=== PATIENT | female | born 2000 | race Caucasian/White ===

== ENCOUNTER 2020-06-28 18:06 | Emergency (ER) | payer SELFPAY ==
[2020-06-28 18:59] LABS: ABSOLUTE EOSINOPHILS # (AUTO) 0.1 10^3/uL (0.0-0.6); MONOCYTES % (AUTO) 5.1 % (3-13); TOTAL CELLS COUNTED % (AUTO) 100 %
[2020-06-28 19:05] LABS: ABSOLUTE LYMPHOCYTES (AUTO) 1.7 10^3/uL (0.5-4.7); ABSOLUTE MONOCYTES (AUTO) 0.4 10^3/uL (0.1-1.4); ABSOLUTE NEUT (AUTO) 5.1 10^3/uL (1.7-8.2); BASOPHILS % (AUTO) 0.5 % (0-2); EOSINOPHILS % (AUTO) 1.3 % (0-6); HEMATOCRIT 43.6 % (36.0-47.0); HEMOGLOBIN 14.8 g/dL (12.0-15.5); LYMPHOCYTES % (AUTO) 23.2 % (13-45); MEAN CORPUSCULAR HEMOGLOBIN 30.7 pg (27.0-33.4); MEAN CORPUSCULAR VOLUME 90 fl (80-97); PLATELET COUNT 252 10^3/uL (150-450); RED BLOOD COUNT 4.82 10^6/uL (3.72-5.28); RED CELL DISTRIBUTION WIDTH 12.8 % (11.5-14.0); SEGMENTED NEUTROPHILS % (AUTO) 69.9 % (42-78); WHITE BLOOD COUNT 7.3 10^3/uL (4.0-10.5)
[2020-06-28 19:22] LABS: ALBUMIN 4.8 g/dL (3.5-5.0); ALKALINE PHOSPHATASE 64 U/L (38-126); ANION GAP 8 (5-19); ASPARTATE AMINO TRANSFERASE 30 U/L (14-36); BILIRUBIN,TOTAL 0.7 mg/dL (0.2-1.3); BLOOD UREA NITROGEN 10 mg/dL (7-20); CALCIUM 9.7 mg/dL (8.4-10.2); CARBON DIOXIDE 22 mmol/L (22-30); CHLORIDE 106 mmol/L (98-107); GLUCOSE 101 mg/dL (75-110); POTASSIUM 4.1 mmol/L (3.6-5.0); TOTAL PROTEIN 7.9 g/dL (6.3-8.2)
[2020-06-28 19:24] LABS: ALCOHOL < 10 mg/dL (NONE DETECTED)
[2020-06-28 19:31] LABS: APPEARANCE,URINE CLEAR; BILIRUBIN,URINE NEGATIVE (NEGATIVE); COLOR,URINE STRAW; GLUCOSE, URINE NEGATIVE (NEGATIVE); KETONES,URINE NEGATIVE (NEGATIVE); LEUKOCYTE ESTERASE,URINE SMALL (NEGATIVE); NITRITE,URINE NEGATIVE (NEGATIVE); PROTEIN,URINE NEGATIVE (NEGATIVE); URINE SPECIFIC GRAVITY 1.004; UROBILINOGEN,URINE NEGATIVE mg/dL (<2.0)
--- NOTE | 2020-06-28 19:44 | ER Document Report ---
ED Seizure - General Chief Complaint: amandeep Stated Complaint: SEIZURE Time Seen by Provider: 06/28/20 18:15 Mode of Arrival: Medic Information source: Emergency Med Personnel Notes: Patient 20-year-old female presents to the emergency department with a history of seizure activity which occurred this afternoon. Apparently she was in the bed with her boyfriend when she began having a shaking episode. Apparently became confused afterwards and had some biting of the tongue. She denies a p rior history of seizures. There was no incontinence of urine or stool. She is on levothyroxine for hypothyroidism, does not take any other medications, denies any use of illicit drugs, denies alcohol use. Past Medical History - Social History Smoking Status: Never Smoker Chew tobacco use (# tins/day): No Frequency of alcohol use: Rare Drug Abuse: None Family History: Reviewed & Not Pertinent Patient has homicidal ideation: No Review of Systems - Review of Systems Notes: Constitutional: Negative for fever. HENT: See HPI Eyes: Negative for visual changes. Cardiovascular: Negative for chest pain. Respiratory: Negative for shortness of breath. Gastrointestinal: Negative for abdominal pain, vomiting or diarrhea. Genitourinary: Negative for dysuria. Musculoskeletal: Negative for back pain. Skin: Negative for rash. Neurological: Seizure episode, negative for headaches, weakness or numbness. 10 point ROS negative except as marked above and in HPI. Physical Exam - Vital signs Vitals: Resp Pulse Ox 26 H 100 06/28/20 18:19 06/28/20 18:19 - Notes Notes: PHYSICAL EXAMINATION: Physical Exam: General: Well-nourished well-developed 20-year-old female in no acute distress HEENT: NC/AT, pupils equal round and reactive to light, MM moist,nares clear, oropharynx clear, airway patent, tongue with superficial abrasions area secondary to biting on tongue. Neck: supple, no adenopathy, no masses. Good range of motion Lungs: clear, no wheezing, no rales no rhonchi CVS: Regular rate and rhythm no murmur gallop or rub Abdomen: Soft, active, nontender, no masses, no hepatosplenomegaly Ext: No edema, clubbing or cyanosis. Neuro: Alert and responsive, moving all 4 extremities on command, cranial nerves intact, no focal findings Skin: Intact no open lesions, no rash PSYCH: Normal mood, normal affect. Course - Re-evaluation Re-evalutation: 06/28/20 19:47 Patient has no known seizure history, episode today sounds concerning given biting of the tongue and also post ictal status with confusion. No other injuries are noted patient is alert and functional at this time. CT scan was done along with labs. - Vital Signs Vital signs: Temp Pulse Resp BP Pulse Ox 99.4 F 102 H 19 118/79 98 06/28/20 19:01 06/28/20 21:02 06/28/20 21:02 06/28/20 21:02 06/28/20 21:02 - Laboratory Result Diagrams: 06/28/20 18:44 06/28/20 18:44 Laboratory results interpreted by me: 06/28/20 06/28/20 18:44 19:22 Sodium 136.2 L Urine Blood SMALL H Ur Leukocyte Esterase SMALL H I have reviewed laboratory data and used this information for the treatment decisions regarding the patient. - Diagnostic Test Radiology reviewed: Image reviewed, Reports reviewed Radiology results interpreted by me: 06/28/20 20:22 CT scan of the head noncontrast: Bilateral cochlear implants noted, no acute intra-cranial pathology. Discharge - Discharge Clinical Impression: New onset seizure Condition: Good Disposition: HOME, SELF-CARE Instructions: New Seizure ([facility]) Additional Instructions: You were seen in the emergency department tonight and diagnosed with new onset seizure activity. You are being referred to neurology for closer evaluation and determination of a possible seizure focus which will require long-term medical treatment. If you have further episodes of seizure you may return to the emergency department at that time a commitment will be made to begin the medic ation if needed. Please follow-up with the neurologist, contact the office tomorrow regarding for appointment. You are being referred to a neurologist, Dr. Jason Hickey,, call [phone] to schedule an appointment. Please inform the imaging scheduler that you were seen in the emergency department at [facility] 06/28/2020 with new onset seizure episode and labs and CT scan were negative. HOME CARE INSTRUCTIONS & INFORMATION: Thank you for choosing us for your medical needs. We hope you're satisfied with the care you received. After you leave, you must properly care for your problem and, at the same time, observe its progress. Any condition can change. Some illnesses can change rapidly over hours or days. If your condition worsens, return to the Emergency Department or see your physician promptly. ABOUT YOUR X-RAYS AND EKG'S: If you had an EKG or X-rays taken, they have been read by the Emergency Physician. The X-rays and EKG's will also be read by a Radiologist or Needle Valve Operator within 24 hours. If discrepancies are noted, you will be notified by telephone. Please be certain the ED has a correct telephone number & address where you can be reached. Also, realize that some fractures or abnormalities do not show up on initial X-rays. If your symptoms continue, see your physician. ABOUT YOUR LABORATORY TEST: If you had laboratory tests, the results have been reviewed by the Emergency Physician. Some test results (for example cultures) may not be available for several days. You will be contacted if any test result shows you need additional treatment. Please be certain the ED has a correct telephone number and address where you can be reached. ABOUT YOUR MEDICATIONS: You will receive instructions on how to take your medic ine on the prescription label you receive. Additional information may be provided by the Pharmacy. If you have questions afterwards, call the ED for clarification or further instructions. Some prescribed medications may cause drowsiness. Do not perform tasks such as driving a car or operating machinery without consulting your Pharmacist. If you feel you need a refill of pain medication, your condition will need re-evaluation. Please do not call for a refill of any medication. ABOUT YOUR SIGNATURE: Signature of this document acknowledges to followin. Understanding that you received emergency treatment and that you may be released before al medical problems are known or treated. Please be certain the ED has a correct phone number & address where you can be reached. 2. Acknowledgement that you will arrange for follow-up care as recommended. 3. Authorization for the Emergency Physician to provide information to your follow-up Physician in order to maximize your care. AT ANY TIME, IF YOUR SYMPTOMS CHANGE SIGNIFICANTLY OR WORSEN OR YOU DEVELOP NEW SYMPTOMS, RETURN TO THE EMERGENCY DEPARTMENT IMMEDIATELY FOR RE-EVALUATION. OUR GOAL IS TO PROVIDE EXCELLENT MEDICAL CARE! WE HOPE THAT WE HAVE MET YOUR EXPECTATIONS DURING YOUR EMERGENCY DEPARTMENT VISIT AND THAT YOU FEEL YOU HAVE RECEIVED EXCELLENT CARE!
[2020-06-28 19:49] LABS: URINE AMPHETAMINES SCREEN NEGATIVE; URINE BARBITURATES SCREEN NEGATIVE; URINE BENZODIAZEPINES SCREEN NEGATIVE; URINE COCAINE SCREEN NEGATIVE; URINE MARIJUANA (THC) SCREEN NEGATIVE; URINE METHADONE SCREEN NEGATIVE; URINE PHENCYCLIDINE SCREEN NEGATIVE
--- NOTE | 2020-06-28 20:01 | RADIOLOGY REPORT (SQ) ---
EXAM DESCRIPTION: CT HEAD WITHOUT IMAGES COMPLETED DATE/TIME: 06/28/2020 7:44 pm REASON FOR STUDY: new onset seizure COMPARISON: None. TECHNIQUE: Axial images acquired through the brain without intravenous contrast. Images reviewed wi th bone, brain and subdural windows. Additional sagittal and coronal reconstructions were generated. Images stored on PACS. All CT scanners at this facility use dose modulation, iterative reconstruction, and/or weight based d osing when appropriate to reduce radiation dose to as low as reasonably achievable (ALARA). [facility]: Dose Right [facility]: CareDose [facility]: Dose Right [facility]: Teradose 4D [facility]: Smart FileThis RADIATION DOSE: CT Rad equipment meets quality standard of care and radiation dose reduction techniq ues were employed. CTDIvol: 53.2 mGy. DLP: 1070 mGy-cm. mGy. LIMITATIONS: Beam hardening artifact from metal in the occipital area on each side. FINDINGS: VENTRICLES: Normal size and contour. CEREBRUM: No masses. No hemorrhage. No midline shift. No evidence for acute infarction. Normal gra y/white matter differentiation. No areas of low density in the white matter. CEREBELLUM: No masses. No hemorrhage. No alteration of density. No evidence for acute infarction. EXTRAAXIAL SPACES: No fluid collections. No masses. ORBITS AND GLOBE: No intra- or extraconal masses. Normal contour of globe without masses. CALVARIUM: No fracture. PARANASAL SINUSES: No fluid or mucosal thickening. SOFT TISSUES: No mass or hematoma. OTHER: No other significant finding. IMPRESSION: Slightly limited study. No acute intracranial imaging findings were seen. EVIDENCE OF ACUTE STROKE: NO. COMMENT: Quality ID # [id number]: Final reports with documentation of one or more dose reduction techniques (e.g., Automated exposure control, adjustment of the mA and/or kV according to patient size, use of iterative reconstruction technique) TECHNICAL DOCUMENTATION: JOB ID: [id number] 2010 [employer]- All Rights Reserved Reading location - IP/workstation name: [email or web address]
[2020-06-28 21:02] VITALS: BP 118/79
--- NOTE | 2020-06-29 09:15 | EKG REPORT ---
SEVERITY:- BORDERLINE ECG - SINUS TACHYCARDIA : Confirmed by: Justo Figueroa MD 29-Jun-2020 09:14:47
== END 2020-06-28 21:01 | disposition home or self-care (01) ==
LOC: ER 18:06
DX: R56.9 Unspecified convulsions (principal)
CPT/HCPCS: 36415; 70450; 80053; 80307; 81001; 83735; 84703; 85025; 93005; 93010; 99285

== ENCOUNTER 2020-07-15 03:54 | Emergency (ER) | payer SELFPAY ==
[2020-07-15 04:22] VITALS: BP 107/75
[2020-07-15 05:11] LABS: ABSOLUTE BASOPHILS # (AUTO) 0.1 10^3/uL (0.0-0.2); ABSOLUTE EOSINOPHILS # (AUTO) 0.1 10^3/uL (0.0-0.6); ABSOLUTE MONOCYTES (AUTO) 0.5 10^3/uL (0.1-1.4); ABSOLUTE NEUT (AUTO) 6.9 10^3/uL (1.7-8.2); BASOPHILS % (AUTO) 0.6 % (0-2); EOSINOPHILS % (AUTO) 1.3 % (0-6); HEMATOCRIT 44.2 % (36.0-47.0); LYMPHOCYTES % (AUTO) 21.2 % (13-45); MEAN CORPUSCULAR HEMOGLOBIN 30.4 pg (27.0-33.4); MEAN CORPUSCULAR HGB CONC 33.9 g/dL (32.0-36.0); MEAN CORPUSCULAR VOLUME 90 fl (80-97); MONOCYTES % (AUTO) 5.1 % (3-13); PLATELET COUNT 271 10^3/uL (150-450); RED BLOOD COUNT 4.92 10^6/uL (3.72-5.28); RED CELL DISTRIBUTION WIDTH 12.8 % (11.5-14.0); SEGMENTED NEUTROPHILS % (AUTO) 71.8 % (42-78); TOTAL CELLS COUNTED % (AUTO) 100 %; WHITE BLOOD COUNT 9.6 10^3/uL (4.0-10.5)
[2020-07-15 05:19] LABS: APPEARANCE,URINE SLIGHTLY-CLOUDY; BILIRUBIN,URINE NEGATIVE (NEGATIVE); COLOR,URINE YELLOW; GLUCOSE, URINE NEGATIVE (NEGATIVE); KETONES,URINE NEGATIVE (NEGATIVE); LEUKOCYTE ESTERASE,URINE SMALL (NEGATIVE); NITRITE,URINE NEGATIVE (NEGATIVE); PROTEIN,URINE NEGATIVE (NEGATIVE); URINE SPECIFIC GRAVITY 1.017; UROBILINOGEN,URINE NEGATIVE mg/dL (<2.0)
[2020-07-15 05:27] LABS: URINE AMPHETAMINES SCREEN NEGATIVE; URINE BARBITURATES SCREEN NEGATIVE; URINE BENZODIAZEPINES SCREEN NEGATIVE; URINE COCAINE SCREEN NEGATIVE; URINE MARIJUANA (THC) SCREEN NEGATIVE; URINE METHADONE SCREEN NEGATIVE; URINE PHENCYCLIDINE SCREEN NEGATIVE
[2020-07-15 05:28] LABS: ALBUMIN 4.8 g/dL (3.5-5.0); ALKALINE PHOSPHATASE 65 U/L (38-126); ANION GAP 11 (5-19); ASPARTATE AMINO TRANSFERASE 25 U/L (14-36); BILIRUBIN,TOTAL 0.5 mg/dL (0.2-1.3); BLOOD UREA NITROGEN 11 mg/dL (7-20); CALCIUM 9.8 mg/dL (8.4-10.2); CARBON DIOXIDE 24 mmol/L (22-30); CHLORIDE 105 mmol/L (98-107); GLUCOSE 94 mg/dL (75-110); TOTAL PROTEIN 7.7 g/dL (6.3-8.2)
[2020-07-15 05:31] LABS: ALCOHOL < 10 mg/dL (NONE DETECTED)
== END 2020-07-15 05:30 | disposition left against medical advice (07) ==
LOC: ER 03:54
DX: Z53.21 Procedure and treatment not carried out due to patient leaving prior to being seen by health care provider (principal); R56.9 Unspecified convulsions
CPT/HCPCS: 36415; 80053; 80307; 81001; 82962; 83735; 84703; 85025

== ENCOUNTER 2020-08-21 11:23 | Emergency (ER) | payer OTHER ==
[2020-08-21 11:37] VITALS: BP 115/70
[2020-08-21 12:38] LABS: ABSOLUTE EOSINOPHILS # (AUTO) 0.1 10^3/uL (0.0-0.6); ABSOLUTE LYMPHOCYTES (AUTO) 1.8 10^3/uL (0.5-4.7); ABSOLUTE MONOCYTES (AUTO) 0.4 10^3/uL (0.1-1.4); ABSOLUTE NEUT (AUTO) 4.5 10^3/uL (1.7-8.2); BASOPHILS % (AUTO) 0.3 % (0-2); EOSINOPHILS % (AUTO) 1.4 % (0-6); HEMATOCRIT 41.6 % (36.0-47.0); HEMOGLOBIN 14.4 g/dL (12.0-15.5); LYMPHOCYTES % (AUTO) 26.5 % (13-45); MEAN CORPUSCULAR HEMOGLOBIN 31.2 pg (27.0-33.4); MEAN CORPUSCULAR HGB CONC 34.7 g/dL (32.0-36.0); MEAN CORPUSCULAR VOLUME 90 fl (80-97); MONOCYTES % (AUTO) 6.2 % (3-13); PLATELET COUNT 215 10^3/uL (150-450); RED BLOOD COUNT 4.62 10^6/uL (3.72-5.28); RED CELL DISTRIBUTION WIDTH 13.3 % (11.5-14.0); SEGMENTED NEUTROPHILS % (AUTO) 65.6 % (42-78); TOTAL CELLS COUNTED % (AUTO) 100 %; WHITE BLOOD COUNT 6.9 10^3/uL (4.0-10.5)
--- NOTE | 2020-08-21 12:42 | ER Document Report ---
ED General - General Chief Complaint: Chest Tightness Stated Complaint: CHEST TIGHTNESS Time Seen by Provider: 08/21/20 11:35 - HPI Notes: Chief complaint: Chest pain History of present illness: 20-year-old female with no primary care physician brought here by her mother today because concern about intermittent sharp left anterior chest pain for 1 week. Episodes usually last less than 5 minutes. Not associated with dyspnea, cough, hemoptysis, fever, chills, diaphoresis or any radiation of pain. She is not on BCPs. She has no history of thromboembolic disease. No history of any cardiac problems. Not hypertensive by history. No history of diabetes or hyperlipidemia. Non-smoker. No drug abuse. PERC SCORE negative as follows: H noted hormone administration A Age less than 50 D NO DVT/PE previously C no coughing up blood L no leg swelling unilaterally O O2 sat greater than 95% T no tachycardia S no surgery/Trauma recently Patient has a history of congenital hearing impairment. She also has a seizure disorder and is on Keppra. 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 - Related Data Allergies/Adverse Reactions: No Known Allergies Allergy (Unverified 07/15/20 04:12) Home Medications: Levothyroxine, Keppra, Boric Acid suppositories Past Medical History - General Information source: Patient, Parent, [facility] Records - Social History Smoking Status: Never Smoker Frequency of alcohol use: None Drug Abuse: None Family History: Reviewed & Not Pertinent Neurological Medical History: Reports: Hx Seizures Past Surgical History: Reports: Hx Tonsillectomy - T&A Review of Systems - Review of Systems Notes: Constitutional: Negative for fever. HENT: Negative for sore throat. Eyes: Negative for visual changes. Cardiovascular: As per HPI. Respiratory: As per HPI. Gastrointestinal: Negative for abdominal pain, vomiting or diarrhea. Genitourinary: Negative for dysuria. Musculoskeletal: No leg swelling or pain. Skin: Negative for rash. Neurological: Negative for headaches, weakness or numbness. 10 point ROS negative except as marked above and in HPI. Physical Exam - Vital signs Vitals: Temp Pulse Resp BP Pulse Ox 97.8 F 84 16 115/70 100 08/21/20 11:37 08/21/20 11:37 08/21/20 11:37 08/21/20 11:37 08/21/20 11:37 - Notes Notes: GENERAL: Slender female approximately stated age appearing in no acute distress. SKIN: Good turgor no rashes. HEAD: Normocephalic atraumatic. EYES: PERRLA. EOMI. Conjunctivae and sclerae clear. EARS: CANALS AND TMS CLEAR. NOSE: CLEAR. MOUTH: Moist mucosa. Good dentition. No stridor or edema. No drooling. NECK: Supple. No masses or thyromegaly. No adenopathy. Carotids 2+ without bruits. No JVD. BACK: Symmetrical without tenderness. CHEST: Mild reproducible left anterior chest wall tenderness. Respirations unlabored. Breath sounds clear and symmetrical. HEART: Regular rhythm. No murmur gallop or rub. ABDOMEN: Soft nontender without masses, organomegaly or rebound. Bowel sounds normally active. No bruits. GENITALIA: Deferred. EXTREMITIES: No edema. No calf tenderness. Cap refill less than 1.5 seconds. Dorsalis pedis and posterior tibial pulses 3+ and symmetrical. NEUROLOGICAL: GCS 15. Alert and oriented x3. Normal gait. Fluent speech. Cranial nerves II through XII intact. Sensorimotor and cerebellar normal. Normal tone. PSYCHIATRIC: Appropriate affect. Course - Re-evaluation Re-evalutation: 08/21/20 13:54 Chest x-ray is normal. Her CBC, comprehensive metabolic profile, chest x-ray were all normal. Her TSH was markable for a minuscule elevation which I think is within the range of measurement error. I explained to patient and her mother that I would not recommend changing her thyroid dosage right now. I think it is likely that her current chest discomfort is a musculoskeletal origin. I would feel comfortable with outpatient primary care follow-up and will make an appropriate referral. In the meantime he may use ibuprofen or acetaminophen [id number] as needed. Findings, clinical impression and plan of treatment have been discussed with patient/family. Understanding of current findings and recommendations has been acknowledged by them and there is agreement regarding disposition and follow-up. - Vital Signs Vital signs: Temp Pulse Resp BP Pulse Ox 97.8 F 84 16 115/70 100 08/21/20 11:37 08/21/20 11:37 08/21/20 11:37 08/21/20 11:37 08/21/20 11:37 - Laboratory Result Diagrams: 08/21/20 12:20 08/21/20 12:20 Laboratory results interpreted by me: 08/21/20 08/21/20 08/21/20 12:20 12:20 12:29 Glucose 69 L TSH 4.73 H Leukocyte Esterase Rfl SMALL H - EKG Interpretation by Me Additional EKG results interpreted by me: 08/21/20 12:40 Twelve-lead EKG reviewed by me contemporaneously: 1130 hrs. Indication for study: Chest pain Rhythm: Normal sinus Rate: 85 Intervals: Normal QRS axis: [address]/T wave changes: None Comparison with prior tracing: None Interpretation: Normal tracing Discharge - Discharge Clinical Impression: Chest pain Condition: Stable Disposition: HOME, SELF-CARE Additional Instructions: [id number] Tylenol or ibuprofen as needed for discomfort. Return here as needed for new or worsening symptoms: Pain that is worsening or unimproved Uncontrolled vomiting High fever or shaking chills Overall worsening Follow-up with referral primary care physician. Referrals: [facility] [Provider Group] - Follow up as needed
[2020-08-21 12:45] LABS: APPEARANCE,URINE SLIGHTLY-CLOUDY; BILIRUBIN,URINE NEGATIVE (NEGATIVE); COLOR,URINE STRAW; GLUCOSE, URINE NEGATIVE (NEGATIVE); KETONES,URINE NEGATIVE (NEGATIVE); PROTEIN,URINE NEGATIVE (NEGATIVE); URINE SPECIFIC GRAVITY 1.005; UROBILINOGEN,URINE NEGATIVE mg/dL (<2.0)
[2020-08-21 12:55] LABS: ALBUMIN 4.7 g/dL (3.5-5.0); ALKALINE PHOSPHATASE 55 U/L (38-126); ANION GAP 11 (5-19); ASPARTATE AMINO TRANSFERASE 25 U/L (14-36); BILIRUBIN,DIRECT 0.2 mg/dL (0.0-0.4); BILIRUBIN,TOTAL 0.9 mg/dL (0.2-1.3); BLOOD UREA NITROGEN 10 mg/dL (7-20); CALCIUM 9.5 mg/dL (8.4-10.2); CARBON DIOXIDE 23 mmol/L (22-30); CHLORIDE 107 mmol/L (98-107); TOTAL PROTEIN 7.6 g/dL (6.3-8.2)
[2020-08-21 13:02] LABS: URINE AMPHETAMINES SCREEN NEGATIVE; URINE BARBITURATES SCREEN NEGATIVE; URINE BENZODIAZEPINES SCREEN NEGATIVE; URINE COCAINE SCREEN NEGATIVE; URINE MARIJUANA (THC) SCREEN NEGATIVE; URINE METHADONE SCREEN NEGATIVE; URINE PHENCYCLIDINE SCREEN NEGATIVE
[2020-08-21 13:19] LABS: ALCOHOL < 10 mg/dL (NONE DETECTED); GLUCOSE 69 mg/dL (75-110)
--- NOTE | 2020-08-21 13:48 | RADIOLOGY REPORT (SQ) ---
EXAM DESCRIPTION: CHEST 2 VIEWS IMAGES COMPLETED DATE/TIME: 08/21/2020 12:11 pm REASON FOR STUDY: cp COMPARISON: None. TECHNIQUE: Frontal and lateral radiographic views of the chest acquired. NUMBER OF VIEWS: Two view. LIMITATIONS: None. FINDINGS: LUNGS AND PLEURA: No pneumothorax. No consolidation or pleural effusion. MEDIASTINUM AND HILAR STRUCTURES: No contour abnormalities. HEART AND VASCULAR STRUCTURES: Heart normal size. BONES: No acute findings. HARDWARE: None in the chest. OTHER: No other significant finding. IMPRESSION: NO ACUTE FINDINGS. TECHNICAL DOCUMENTATION: JOB ID: [id number] [place]-72 2010 [employer]- All Rights Reserved Reading location - IP/workstation name: [email or web address]
--- NOTE | 2020-08-21 21:48 | EKG REPORT ---
SEVERITY:- NORMAL ECG - SINUS RHYTHM : Confirmed by: Donna Roca MD 21-Aug-2020 21:47:47
== END 2020-08-21 14:15 | disposition home or self-care (01) ==
LOC: ER 11:23
DX: R07.9 Chest pain, unspecified (principal); Z79.899 Other long term (current) drug therapy
CPT/HCPCS: 36415; 71046; 80053; 80307; 81001; 81025; 84443; 85025; 93005; 93010; 99285

== ENCOUNTER 2020-11-19 12:25 | Emergency (ER) | payer OTHER ==
[2020-11-19 13:36] LABS: ABSOLUTE LYMPHOCYTES (AUTO) 0.9 10^3/uL (0.5-4.7); ABSOLUTE MONOCYTES (AUTO) 0.2 10^3/uL (0.1-1.4); BASOPHILS % (AUTO) 0.3 % (0-2); EOSINOPHILS % (AUTO) 0.1 % (0-6); HEMATOCRIT 43.7 % (36.0-47.0); HEMOGLOBIN 14.9 g/dL (12.0-15.5); LYMPHOCYTES % (AUTO) 9.5 % (13-45); MEAN CORPUSCULAR HEMOGLOBIN 30.1 pg (27.0-33.4); MEAN CORPUSCULAR HGB CONC 34.1 g/dL (32.0-36.0); MEAN CORPUSCULAR VOLUME 88 fl (80-97); MONOCYTES % (AUTO) 2.5 % (3-13); PLATELET COUNT 260 10^3/uL (150-450); RED BLOOD COUNT 4.94 10^6/uL (3.72-5.28); RED CELL DISTRIBUTION WIDTH 12.7 % (11.5-14.0); SEGMENTED NEUTROPHILS % (AUTO) 87.6 % (42-78); TOTAL CELLS COUNTED % (AUTO) 100 %; WHITE BLOOD COUNT 9.2 10^3/uL (4.0-10.5)
[2020-11-19] MEDS ORDERED: LEVETIRACETAM 1000 MG/NACL-ISO 1,000 MG/100 ML RTUPB IV ONE (13:44)
[2020-11-19] MEDS ORDERED: NORMAL SALINE 1000 ML 1,000 ML IV ONE (13:44)
--- NOTE | 2020-11-19 13:51 | ER Document Report ---
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 Patient is being followed by neurologist in [facility], Dr. Zuniga, who has been treating her with Keppra 500 mg twice daily. Patient had a normal noncontrast head CT in June of this year. She was not able to have an MRI scan because she has bilateral cochlear implants incompatible with MRI scanning. She has had an office-based EEG that was read as normal and is supposed to be scheduled for an upcoming 24-hour EEG. Mother notes that patient has had some disturbance of her sleep pattern within the last several days and other than that nothing out of the ordinary with her routine. She is fully compliant with her medication. No alcohol consumption. No new trauma. No fever, chills, dysuria, nausea, vomiting or diarrhea. Patient is a non-smoker. No history of drug use. Mother notes that pattern of seizures has changed slightly. 2 seizures in the last 24 hours is unusual for her. Also patient had reported seeing some "wavy lines" in visual schumacher prior to both of these seizures. She had complained of extreme fatigue within the 12-hour. Pr eceding the first of these 2 seizures. Both were described as generalized tonic-clonic brief in duration perhaps under 2 minutes. Patient complained of fatigue and dull headache afterwards and with her earlier seizures mother noted that her period of postictal confusion was very brief perhaps under 30 minutes. When she had a seizure earlier today she was postictal for over an hour. Last menses normal 2 weeks ago. - Related Data Allergies/Adverse Reactions: No Known Allergies Allergy (Unverified 07/15/20 04:12) Home Medications: keppra, synthroid Past Medical History - General Information source: Patient, Parent, REPLACED BY [facility] Records - Social History Smoking Status: Never Smoker Frequency of alcohol use: None Drug Abuse: None Lives with: Family Family History: Reviewed & Not Pertinent Patient has homicidal ideation: No - Past Medical History Cardiac Medical History: Reports: None Pulmonary Medical History: Reports: None Neurological Medical History: Reports: Hx Seizures Endocrine Medical History: Denies: Hx Diabetes Mellitus Type 1, Hx Diabetes Mellitus Type 2 Malignancy Medical History: Reports: None GI Medical History: Reports: None Musculoskeletal Medical History: Reports None Psychiatric Medical History: Reports: None Past Surgical History: Reports: Hx Tonsillectomy - T&A, Other - Bilateral cochlear implants Review of Systems - Review of Systems Notes: Constitutional: Negative for fever. HENT: Negative for sore throat. Eyes: Negative for visual changes. Cardiovascular: Negative for chest pain. Respiratory: Negative for shortness of breath. Gastrointestinal: Negative for abdominal pain, vomiting or diarrhea. Genitourinary: Negative for dysuria. Musculoskeletal: Negative for back pain. Skin: Negative for rash. Neurological: As per HPI. 10 point ROS negative except as marked above and in HPI. Physical Exam - Vital signs Vitals: Temp Pulse Resp BP Pulse Ox 98.4 F 123 H 16 104/86 H 98 11/19/20 12:30 11/19/20 12:30 11/19/20 12:30 11/19/20 12:30 11/19/20 12:30 - Notes Notes: GENERAL: Slender female approximately stated age appearing in no acute distress. SKIN: Somewhat pale. Good turgor no rashes. HEAD: Normocephalic atraumatic. EYES: Eyes appear mildly sunken consistent with mild dehydration. PERRLA. EOMI. Conjunctivae and sclerae clear. EARS: CANALS AND TMS CLEAR. NOSE: CLEAR. MOUTH: Moist mucosa. Good dentition. No stridor or edema. No drooling. NECK: Supple. No masses or thyromegaly. No adenopathy. Carotids 2+ without bruits. No JVD. BACK: Symmetrical without tenderness. CHEST: Respirations unlabored. Breath sounds clear and symmetrical. HEART: Regular rhythm. No murmur gallop or rub. ABDOMEN: Soft nontender without masses, organomegaly or rebound. Bowel sounds normally active. No bruits. GENITALIA: Deferred. EXTREMITIES: No edema. No calf tenderness. Cap refill less than 1.5 seconds. Dorsalis pedis and posterior tibial pulses 3+ and symmetrical. NEUROLOGICAL: GCS 15. Alert and oriented x3. Normal gait. Fluent speech. Cranial nerves II through XII intact. Sensorimotor and cerebellar normal. 1+ ankle clonus bilaterally. PSYCHIATRIC: Flat affect. Course - Vital Signs Vital signs: Temp Pulse Resp BP Pulse Ox 98.4 F 123 H 24 H 113/81 100 11/19/20 12:30 11/19/20 12:30 11/19/20 12:56 11/19/20 12:56 11/19/20 12:56 - Laboratory Results Result Diagrams: 11/19/20 13:10 11/19/20 13:10 Laboratory Results Interpreted: 11/19/20 11/19/20 11/19/20 13:10 13:10 14:15 Lymph % (Auto) 9.5 L Jack % (Auto) 2.5 L Seg Neutrophils % 87.6 H Sodium 135.2 L Carbon Dioxide 21 L Glucose 119 H Urine Protein 30 H Urine Ketones 20 H Ur Leukocyte Esterase TRACE H Urine Ascorbic Acid 40 H Critical Laboratory Results Reviewed: Yes Attending or Supervising Physician who Reviewed Labs: LINA ORTEGA - Radiology Results Radiology Results Interpreted: 11/19/20 15:35 This is a young lady who has been worked up and managed by her neurologist with a generalized seizure disorder attributed to idiopathic epilepsy since June of this year. She has had breakthrough seizures over the last 24 hours and is experienced 2 episodes of seizure. She has some dull headache. She has not slept well for several days preceding this and sleep deprivation may have been the precipitating factor. As I talked with her mother further it seems that she has withdrawn from usual activities now and is spending all of her time at home and not getting any regular exercise due to her seizure disorder and also isolation related to Covid pandemic. Her evaluation here today shows that she may have a mild urinary tract infection. She does not have a fever or elevation of her peripheral white count. She has no new neurologic abnormality on today's exam and is appropriately oriented. She does look like she may be mildly dehydrated clinically and her labs are consistent with this as well. She has been getting IV normal saline here and we gave her some additional Keppra IV. Her neurologist had already advised her by phone earlier today to increase her dosage of Keppra from 500 mg twice daily to 1000 mg twice daily. I am going to treat her with some oral Keflex and talk with her mother about assuring adequate fluid intake and doing some daily walking to try to normalize her sleep pattern a bit. She can follow-up with her neurologist by telephone within the next 24 hours and may return here for any additional problems. Findings, clinical impression and plan of treatment have been discussed with patient/family. Understanding of current findings and recommendations has been acknowledged by them and there is agreement regarding disposition and follow-up. Critical Radiology Results Reviewed: No Critical Results Discharge - Discharge Clinical Impression: Seizure, Dehydration, Urinary tract infection Condition: Stable Disposition: HOME, SELF-CARE Instructions: Cephalexin ([facility]) Additional Instructions: Increase the dosage on her Keppra as recommended by your neurologist already. Take prescribed antibiotic for the next 3 days for urinary tract infection. Results of your urine culture remain pending at this time. Increase oral fluid intake as directed. Take a walk or engage in other regular exercise for at least 30 minutes each day to improve your sleep pattern. Follow-up with your neurologist by telephone within the next 24 hours. Return here as needed for new or worsening symptoms: Pain that is worsening or unimproved Uncontrolled vomiting High fever or shaking chills Overall worsening Prescriptions: Cephalexin Monohydrate [Keflex 500 mg Capsule] 500 mg PO Q6H 5 Days capsule
[2020-11-19 14:03] LABS: ALBUMIN 4.9 g/dL (3.5-5.0); ANION GAP 10 (5-19); ASPARTATE AMINO TRANSFERASE 24 U/L (14-36); BLOOD UREA NITROGEN 14 mg/dL (7-20); CALCIUM 9.6 mg/dL (8.4-10.2); CARBON DIOXIDE 21 mmol/L (22-30); CHLORIDE 104 mmol/L (98-107); GLUCOSE 119 mg/dL (75-110); POTASSIUM 4.4 mmol/L (3.6-5.0); TOTAL PROTEIN 8.1 g/dL (6.3-8.2)
[2020-11-19 14:04] LABS: ALKALINE PHOSPHATASE 75 U/L (38-126)
[2020-11-19 14:09] LABS: ALCOHOL < 10 mg/dL (NONE DETECTED)
[2020-11-19 15:02] LABS: AMORPHOUS SEDIMENT,URINE TRACE /HPF; APPEARANCE,URINE CLOUDY; BILIRUBIN,URINE NEGATIVE (NEGATIVE); COLOR,URINE YELLOW; GLUCOSE, URINE NEGATIVE (NEGATIVE); KETONES,URINE 20 mg/dL (NEGATIVE); LEUKOCYTE ESTERASE,URINE TRACE (NEGATIVE); NITRITE,URINE NEGATIVE (NEGATIVE); PROTEIN,URINE 30 mg/dL (NEGATIVE); URINE SPECIFIC GRAVITY 1.021; UROBILINOGEN,URINE NEGATIVE mg/dL (<2.0)
[2020-11-19 15:10] LABS: URINE AMPHETAMINES SCREEN NEGATIVE; URINE BARBITURATES SCREEN NEGATIVE; URINE BENZODIAZEPINES SCREEN NEGATIVE; URINE COCAINE SCREEN NEGATIVE; URINE MARIJUANA (THC) SCREEN NEGATIVE; URINE METHADONE SCREEN NEGATIVE; URINE PHENCYCLIDINE SCREEN NEGATIVE
[2020-11-19] MEDS ORDERED: KETOROLAC TROMETHAMINE INJ/PF 30 MG/1 ML SDV IV ONE (15:25)
[2020-11-19] MEDS ORDERED: CEPHALEXIN 500 MG CAPSULE PO ONE (15:25)
[2020-11-19] MEDS ORDERED: FLUCONAZOLE 100 MG TABLET PO ONE (15:26)
--- NOTE | 2020-11-19 16:09 | EKG REPORT ---
SEVERITY:- BORDERLINE ECG - SINUS RHYTHM PROBABLE LEFT ATRIAL ABNORMALITY : Confirmed by: Justo Figueroa MD 19-Nov-2020 16:08:30
[2020-11-19 16:15] VITALS: BP 132/89
== END 2020-11-19 16:27 | disposition home or self-care (01) ==
LOC: ER 12:25
DX: G40.309 Generalized idiopathic epilepsy and epileptic syndromes, not intractable, without status epilepticus (principal); E86.0 Dehydration; N39.0 Urinary tract infection, site not specified; G47.9 Sleep disorder, unspecified; Z79.899 Other long term (current) drug therapy; Z96.21 Cochlear implant status
CPT/HCPCS: 93005; 99284; 96361; 96374; 96375; 36415; 80307 ×2; 83735; 85025; 81025; 80053; 81001; 93010; J1885; J7030; J1953